=== PATIENT | female | born 1965 | race Two or more races ===

== ENCOUNTER 2018-09-20 11:36 | Emergency (ER) | payer MEDICAID ==
[~2018-09-20] VITALS: Ht 157.5 cm; Wt 81.6 kg
--- NOTE | 2018-09-20 11:55 | NUR ---
ED Nurse Note: PT WALKED IN TO ER TODAY FROM HOME. AOX4. PT C/O CHRONIC HEADACHE, NECK PAIN, AND LOWER BACK PAIN, 10/10 ONGOING FOR 6 MONTHS. PT STATES SHE IS TAKING NORCO AT HOME FOR IT BUT PAIN HAS BEEN UNRELIEVED BY MEDS. GAIT STEADY. PT DENIES DIZZINESS, NAUSEA, OR VOMITING.
[2018-09-20 11:56] VITALS: BP 158/92
[2018-09-20] MEDS ORDERED: LORazepam Inj 2mg/ml 1ml IV ONE (12:30)
[2018-09-20] MEDS ORDERED: Morphine Sulfate 4mg/ml Inj (IV USE ONLY) IVP ONE (12:30)
--- NOTE | 2018-09-20 12:53 | NUR ---
ED Nurse Note: PT. WENT TO CT
--- NOTE | 2018-09-20 13:05 | NUR ---
ED Nurse Note: PT BACK FROM CT VIA TIP.
[2018-09-20 14:04] VITALS: BP 142/86
[2018-09-20] MEDS ORDERED: NORCO 5-325 TA1 EACH ORAL (14:10)
[2018-09-20] MEDS ORDERED: ATIVAN1 MG ORAL (14:10)
[2018-09-20] MEDS ORDERED: NARCAN4 MG NS (14:11)
--- NOTE | 2018-09-20 14:12 | NUR ---
ED Nurse Note: FOOD AND DRINK PROVIDED FOR PT.
--- NOTE | 2018-09-20 14:25 | NUR ---
Note kyle in EDM - 09/20/18 at 1431 by CLAUDIO ED Nurse Note: PT SITTING PEACEFULLY IN BED IN NAD. AOX4. PRESCRIPTIONS AND DISCHARGE PAPERWORK EXPLAINED TO PT. PT VERBALIZES UNDERSTANDING AND ALL QUESTIONS ANSWERED. PRESCRIPTIONS AND DISCHARGE PAPERWORK GIVEN TO PT, IV AND ID WRISTBAND REMOVED. PT WALKED OUT OF ER WITH STEADY GAIT AND ALL BELONGINGS.
--- NOTE | 2018-09-20 14:26 | Diagnostic Imaging Report ---
Indications: Headache Technique: Spiral acquisitions obtained through the brain. Angled axial and coronal 5 x 5 mm slices were reconstructed. Total dose length product 1347.93 mGycm. CTDI vol(s) 70.38 mGy. Dose reduction achieved using automated exposure control Comparison: None. Findings: No acute intracranial hemorrhage or edema. No mass effect nor midline shift. Normal size ventricles and extra axial CSF spaces. Normal lopez-white differentiation. Incidentally noted is probable empty sella. Intact calvarium. Visualized orbits and sinuses are unremarkable. The mastoids are clear. Impression: Negative This agrees with the preliminary interpretation provided overnight by [facility] teleradiology service. The CT scanner at [facility] is accredited by the [employer] and the scans are performed using protocols designed to limit radiation exposure to as low as reasonably achievable to attain images of sufficient resolution adequate for diagnostic evaluation.
--- NOTE | 2018-09-20 14:31 | NUR ---
ED Nurse Note: [employer] TECHNICIAN AT BEDSIDE.
--- NOTE | 2018-09-20 14:36 | Emergency Room Report ---
History of Present Illness General Chief Complaint: Headache Source: Patient Present Illness HPI Patient has a history of chronic pain. Patient presents emergency department today complaining of a headache. Patient states that she has a headache. She states that she has bodyaches and occasional exacerbations. She takes pain medications chronically. She states that she sees her pain management physician. She's developed acute onset of headache. She states that her pain management physician is not local to her however. She states that her headaches last couple days. She's had similar headaches but never had prior workups. Because of this patient presented emergency Department further evaluation. Patient denies any fever. Patient does have nausea but no vomiting. Symptoms noted to moderate to severe.No other modifying factors. No other associated signs and symptoms. No other complaints were noted. Allergies: Coded Allergies: IBUPROFEN (Verified Allergy, Unknown, 09/20/18) diarrhea Patient History Past Medical History: HTN Past Surgical History: none Pertinent Family History: none Social History: Denies: smoking, alcohol use, drug use Last Menstrual Period: na Now: No Reviewed Nursing Documentation: PMH: Agreed; PSxH: Agreed Nursing Documentation-PMH Past Medical History: No History, Except For Hx Hypertension: Yes Review of Systems All Other Systems: negative except mentioned in HPI Physical Exam Vital Signs Date Time Temp Pulse Resp B/P (MAP) Pulse Ox O2 Delivery O2 Flow Rate FiO2 09/20/18 11:46 99.0 77 18 164/98 98 Room Air Sp02 EP Interpretation: reviewed, normal General Appearance: alert, moderate distress - Due to pain Head: atraumatic Eyes: bilateral eye normal inspection ENT: normal ENT inspection, hearing grossly normal, normal voice Neck: normal inspection, full range of motion, supple, no bony tend Respiratory: normal inspection, lungs clear, normal breath sounds, no respiratory distress, no retraction, no wheezing Cardiovascular #1: regular rate, rhythm, no edema Gastrointestinal: normal inspection, normal bowel sounds, non tender, soft, no guarding, no hernia Genitourinary: no CVA tenderness Musculoskeletal: normal inspection, back normal, normal range of motion Neurologic: normal inspection, alert, responsive, speech normal Psychiatric: normal inspection, judgement/insight normal, mood/affect normal Skin: normal inspection, normal color, no rash Medical Decision Making Diagnostic Impression: Primary Impression: Acute insomnia ER Course Patient presents emergency department today complaining headache. Differential considerations include intracranial injury, chronic headaches, opiate dependence just name a few. Given the severity of the patient's presentation I felt this is a highly complex patient. This patient required extensive workup. Patient had a head CT which was noted to be negative. Patient had an IV established was given pain medications. Patient also complaining of anxiety was given some Ativan good improvement symptoms. Prior to discharge patient for me that she was also having difficulty with sleeping she is requesting medications. I informed patient that she is receiving [place] for pain and Ativan for sleep would require a prescription for Narcan. Patient states that she ready has a prescription for Narcan. However was still provide another prescription just in case. Patient was given prescription for Underhill and Ativan to assist with sleep.Patient is advised to follow up with primary doctor in 2-3 days and return the emergency room for any worsening symptoms and as needed. CT/MRI/US Diagnostic Results CT/MRI/US Diagnostic Results : Imaging Test Ordered: CT head: Negative Last Vital Signs Date Time Temp Pulse Resp B/P (MAP) Pulse Ox O2 Delivery O2 Flow Rate FiO2 09/20/18 14:04 98.7 74 16 142/86 100 Room Air Status: improved Disposition: HOME, SELF-CARE Condition: Stable Scripts Naloxone HCl (Narcan) 4 Mg [place] 4 MG NS ONCE for not arousable, #1 SPRAY Prov: Nate Anderson MD 09/20/18 Lorazepam* (ATIVAN*) 1 Mg Tablet 1 MG ORAL BEDTIME, #5 TAB Prov: Nate Anderson MD 09/20/18 Hydrocodone Bit/Acetaminophen 5-325* (NORCO 5-325*) 1 Each Tablet 1 TAB ORAL Q6H PRN for For Pain, #10 TAB 0 Refills Prov: Nate Anderson MD 09/20/18 Referrals: [facility] (PCP) Patient Instructions: Insomnia, Tension Headache Nate Anderson MD Sep 20, 2018 14:36
--- NOTE | 2018-09-20 14:44 | NUR ---
ED Nurse Note: PT SITTING PEACEFULLY IN BED IN NAD. AOX4. PRESCRIPTIONS AND DISCHARGE PAPERWORK EXPLAINED TO PT. PT VERBALIZES UNDERSTANDING AND ALL QUESTIONS ANSWERED. PRESCRIPTIONS AND DISCHARGE PAPERWORK GIVEN TO PT, IV AND ID WRISTBAND REMOVED. PT WALKED OUT OF ER WITH STEADY GAIT AND ALL BELONGINGS.
== END 2018-09-20 14:45 | disposition home or self-care (01) ==
LOC: EMR 12:49
DX: G47.00 Insomnia, unspecified (principal); I10 Essential (primary) hypertension; Z88.6 Allergy status to analgesic agent; R51 Headache
CPT/HCPCS: 70450; 96374; 96375; 99284; J2270; J2405

== ENCOUNTER 2018-12-22 14:01 | Emergency (ER) | payer MEDICAID ==
[~2018-12-22] VITALS: Ht 157.5 cm; Wt 72.6 kg
[~2018-12-22 14:01] MED LIST: ATIVAN1 MG ORAL; NARCAN4 MG NS; NORCO 5-325 TA1 EACH ORAL
--- NOTE | 2018-12-22 14:30 | NUR ---
ED Nurse Note: Patient walked into ED c/o neck and low back pain for over 6 years. patient reports chronic pain and she requests for medication refill
[2018-12-22] MEDS ORDERED: ROBAXIN-750750 MG PO (15:51)
[2018-12-22] MEDS ORDERED: LIDODERM700 M1 TOPIC (15:51)
[2018-12-22] MEDS ORDERED: Methocarbamol 750mg tab ORAL ONE (16:00)
[2018-12-22 16:02] VITALS: BP 152/98
[2018-12-22 16:03] VITALS: BP 152/98
--- NOTE | 2018-12-22 16:04 | NUR ---
ER DISCHARGE NOTE: Patient is cleared to be discharged per ALEX COVARRUBIAS, pt is aox4, on room air, with stable vital signs. pt was given dc and prescription instructions, pt was able to verbalize understanding, pt id band removed without complications. pt is able to ambulate with steady gait. pt took all belongings.
--- NOTE | 2018-12-22 16:08 | NUR ---
ED Nurse Note: per Evita NOGUERA, patient is ok to be discharged after taking robaxin, patient is going back home by driving. she is taking soma and norco and patient denies that she gets drowsy after taking this medications.
--- NOTE | 2018-12-22 17:27 | Emergency Room Report ---
History of Present Illness General Chief Complaint: Back Pain-No Injury Source: Medical Record Present Illness HPI 53-year-old female presents to the emergency department complaining of 10 out of 10 severity of neck and back pain exacerbation of her chronic pain due to being out of her pain medication. Patient reports that she regularly is prescribed Soma and Boykin and states that her pain management doctor told her she needs to be managed by a new pain management doctor and is no longer seeing her she states that she does not have any medication. Patient denies trauma or fall she denies fevers, chills, headache or photophobia. Patient denies changes in character from the symptoms that she has been a experiencing over the course of 6 years and have been managed for she is here just requesting for medication refill. No aggravating or relieving factors. Allergies: Coded Allergies: IBUPROFEN (Verified Allergy, Unknown, 09/20/18) diarrhea Patient History Past Medical History: see triage record Past Surgical History: none Pertinent Family History: none Last Menstrual Period: hystrectomy Now: No Reviewed Nursing Documentation: PMH: Agreed; PSxH: Agreed Nursing Documentation-PMH Past Medical History: No History, Except For Hx Hypertension: Yes Review of Systems All Other Systems: negative except mentioned in HPI Physical Exam Vital Signs Date Time Temp Pulse Resp B/P (MAP) Pulse Ox O2 Delivery O2 Flow Rate FiO2 12/22/18 14:26 98.4 81 18 159/101 (120) 96 Room Air Sp02 EP Interpretation: reviewed, normal General Appearance: no apparent distress, alert, GCS 15, non-toxic Head: normocephalic, atraumatic Eyes: bilateral eye normal inspection, bilateral eye PERRL ENT: hearing grossly normal, normal voice Neck: full range of motion - with pain, tender midline Respiratory: lungs clear, normal breath sounds, speaking full sentences Cardiovascular #1: regular rate, rhythm Musculoskeletal: back normal, gait/station normal, normal range of motion, tender - TTP to the thoracic and lumbar spine, no obvious deformities. Neurologic: alert, oriented x3, responsive, motor strength/tone normal, sensory intact, normal gait, speech normal, other - pt. is ambulatory without assistance, grossly normal Psychiatric: judgement/insight normal Skin: normal color, no rash, warm/dry, well hydrated Medical Decision Making PA Attestation Dr. Barnes is my supervising Physician whom patient management has been discussed with. Diagnostic Impression: Primary Impression: Back pain Qualified Codes: M54.5 - Low back pain; G89.29 - Other chronic pain Additional Impression: Medication refill ER Course 53-year-old female presents to the emergency department complaining of 10 out of 10 severity of neck and back pain exacerbation of her chronic pain due to being out of her pain medication. Patient reports that she regularly is prescribed Soma and Boykin and states that her pain management doctor told her she needs to be managed by a new pain management doctor and is no longer seeing her she states that she does not have any medication. Patient denies trauma or fall she denies fevers, chills, headache or photophobia. Patient denies changes in character from the symptoms that she has been a experiencing over the course of 6 years and have been managed for she is here just requesting for medication refill. No aggravating or relieving factors. pt. is also requesting a referral to new pain management. Ddx considered but are not limited to: drug seeking, OD, opiate dependency, chronic back pain, epidural abscess just to name a few. Vital signs: are WNL, pt. is afebrile H&PE are most consistent with non emergent need for medication refill. ORDERS: none required at this time, the diagnosis is clinical ED INTERVENTIONS: -Lidoderm TP -Robaxin PO DISCHARGE: At this time pt. is stable for d/c to home. Will provide printed patient care instructions, and any necessary prescriptions. Care plan and follow up instructions have been discussed with the patient prior to discharge. Last Vital Signs Date Time Temp Pulse Resp B/P (MAP) Pulse Ox O2 Delivery O2 Flow Rate FiO2 12/22/18 16:03 98.4 82 16 152/98 99 Room Air Status: improved Disposition: HOME, SELF-CARE Condition: Stable Scripts Lidocaine (Lidoderm) 1 Each Adh..patch 1 PATCH TOPIC DAILY, #30 PATCH 0 Refills Patch(es) may remain in place for up to 12 hours in any 24-hour period. Prov: Evita Rivers 12/22/18 Methocarbamol* (ROBAXIN-750*) 750 Mg Tablet 750 MG PO QID, #28 TAB 0 Refills Prov: Evita Rivers 12/22/18 Patient Instructions: Back Pain, Adult Additional Instructions: Take medications as directed. Do not drink alcohol, drive, or operate heavy machinery while taking robaxin/ muscle relaxers as this may cause drowsiness. Follow up with a Primary Care Provider in 3-5 days, even if your symptoms have resolved. --Please review list of primary care clinics, if you do not already have a primary care provider Return sooner to ED if new symptoms occur, or current symptoms become worse. - Please note that this Emergency Department Report was dictated using [employer] project [employer] technology software, occasionally this can lead to erroneous entry secondary to interpretation by the dictation equipment. Evita Rivers Dec 22, 2018 17:27
== END 2018-12-22 16:07 | disposition home or self-care (01) ==
LOC: EMR 15:30
DX: M54.5 Low back pain (principal); G89.29 Other chronic pain; Z88.6 Allergy status to analgesic agent; I10 Essential (primary) hypertension; Z90.710 Acquired absence of both cervix and uterus; Z76.0 Encounter for issue of repeat prescription
CPT/HCPCS: 99282